=== PATIENT | male | born 1975 | race Caucasian/White ===

== ENCOUNTER 2023-12-27 13:10 | Emergency (ER) | payer OTHER ==
[~2023-12-27] VITALS: Ht 182.9 cm; Wt 65.9 kg
[2023-12-27 13:18] VITALS: TEMP 97.5
[2023-12-27] MEDS ORDERED: LR 1,000 ML IV ONE (13:45)
[2023-12-27 14:26] LABS: BASO % 0.8 % (0.0-2.0); EOS # 0.1 K/mm3 (0.0-0.7); EOS % 1.9 % (0.0-4.0); GRAN # 2.2 K/mm3 (1.4-6.5); GRAN % 57.6 % (42.2-75.2); HEMOGLOBIN 12.3 g/dl (13.5-18.0); LYMPH # 1.1 K/mm3 (1.2-3.4); LYMPH % 30.2 % (20.0-51.0); MEAN CELL VOLUME 94 fl (80.0-100.0); MEAN CORPUSCULAR HEMOGLOBIN 32 pg (27-31); MEAN CORPUSCULAR HGB CONC 34 g/dl (33.0-37.0); MEAN PLATELET VOLUME 11.5 fl (7.4-10.4); MONO # 0.3 K/mm3 (0.1-0.6); PLATELET COUNT 128 K/mm3 (130-400); REDCELL DISTRIBUTION WIDTH-CV 12.8 % (11.5-14.5)
[2023-12-27 14:41] LABS: HEMATOCRIT 36.5 % (42.0-52.0)
[2023-12-27 14:47] LABS: BILIRUBIN,TOTAL 0.4 mg/dL (0.2-1.2); CALCIUM 8.9 mg/dL (8.4-10.2); CREATININE, serum 0.84 mg/dL (0.72-1.25); POTASSIUM 3.7 mmol/L (3.5-4.5); TOTAL PROTEIN 7.8 gm/dL (6.2-8.1)
[2023-12-27 16:42] LABS: COLLECTION METHOD CLEAN CATCH; PH 5.5 (5.0-8.5); URINE APPEARANCE CLEAR (CLEAR/HAZY); URINE BLOOD NEGATIVE (NEGATIVE); URINE COLOR Dark Yellow (YELLOW); URINE GLUCOSE NEGATIVE (NEGATIVE); URINE KETONE TRACE (NEGATIVE); URINE NITRATE NEGATIVE (NEGATIVE); URINE PROTEIN(semi-quant) 1+ (NEGATIVE)
[2023-12-27] MEDS ORDERED: Azithromycin 250 MG TAB PO ONE (19:00)
[2023-12-27] MEDS ORDERED: Sulfamethoxazole/Trimethoprim 800-160 MG TAB PO ONE (19:00)
[2023-12-27] MEDS ORDERED: cefTRIAXone 1 G in Water For Injection,Sterile 10 ML IV ONE (19:00)
[2023-12-27 19:53] LABS: GLUCOSE,CSF 46 mg/dL (40-70); TOTAL PROTEIN,CSF 74 mg/dL (15-45)
[2023-12-27 20:10] LABS: CSF APPEARANCE CLEAR; CSF COLOR COLORLESS; CSF RBC < 1 /mm3 (0-0)
[2023-12-27 20:11] LABS: CSF APPEARANCE CLEAR; CSF COLOR COLORLESS; CSF RBC < 1 /mm3 (0-0)
[2023-12-27 21:20] LABS: CSF MONONUCLEAR 100 % (70-100); CSF POLYMORPHONUCLEAR 0 % (0-6)
[2023-12-27 21:32] LABS: CSF MONONUCLEAR 100 % (70-100); CSF POLYMORPHONUCLEAR 0 % (0-6)
[2023-12-28 00:25] VITALS: BP 113/85; PULSE 70
[2024-01-01 17:08] LABS: HIV 1 RNA LOG 4.823 (())
== END 2023-12-28 00:25 | disposition short-term general hospital (02) ==
LOC: COL.ER 13:10
PROVIDERS: Emergency Medicine; Family Medicine
DX: B20 Human immunodeficiency virus [HIV] disease (principal); A86 Unspecified viral encephalitis; E88.09 Other disorders of plasma-protein metabolism, not elsewhere classified
CPT/HCPCS: J0133; J0696; J7120